=== PATIENT | female | born 1960 | race Caucasian/White ===

== ENCOUNTER 2021-10-22 07:16 | Emergency (ER) | payer SELFPAY ==
[~2021-10-22] VITALS: Ht 160 cm; Wt 54.0 kg
[2021-10-22] MEDS ORDERED: KETOROLAC TROMETHAMINE 30 MG/ML VIAL IV STA (07:27)
[2021-10-22] MEDS ORDERED: SODIUM CHLORIDE 0.9% 1000ML 1,000 ML IV STA (07:27)
[2021-10-22] MEDS ORDERED: DEXAMETHASONE SOD PHOS 10 MG/1 ML VIAL IV ONE (07:30)
[2021-10-22 07:48] LABS: BASOPHILS % 0.3 % (0.0-1.0); EOSINOPHILS # (AUTO) 0.1 (0.0-0.4); EOSINOPHILS % 0.7 % (0.0-6.0); HEMATOCRIT 33.9 % (34.2-44.1); HEMOGLOBIN 11.3 g/dL (12.0-16.0); LYMPHOCYTES # (AUTO) 0.8 (1.0-3.2); MEAN CORPUSCULAR HEMOGLOBIN 33.7 pg (28-32); MEAN CORPUSCULAR HGB CONC 33.3 g/dL (31-35); MEAN CORPUSCULAR VOLUME 101.2 fL (81-99); MONOCYTES # (AUTO) 1.1 (0.2-0.8); MONOCYTES % 12.7 % (4.4-11.3); NEUTROPHILS # (AUTO) 6.7 (2.1-6.9); NEUTROPHILS % 77.1 % (38.7-80.0); PLATELET COUNT 229 x10e3/uL (140-360); RED BLOOD COUNT 3.35 x10e6/uL (3.6-5.1); RED CELL DISTRIBUTION WIDTH 14.5 % (11.7-14.4)
[2021-10-22 08:13] LABS: ALBUMIN 3.3 g/dL (3.5-5.0); ALBUMIN/GLOBULIN RATIO 0.9 (0.8-2.0); ANION GAP 14.3 mmol/L (8-16); CALCIUM 9.3 mg/dL (8.4-10.2); CREATININE, SERUM 0.72 mg/dL (0.57-1.11); INR 0.85; MAGNESIUM 1.8 MG/DL (1.3-2.1); POTASSIUM 4.3 mmol/L (3.5-5.1); PROTHROMBIN TIME 12.4 seconds (11.9-14.5)
[2021-10-22 08:19] LABS: CREATINE KINASE MB 2.1 ng/mL (0-5.0)
[2021-10-22 08:31] LABS: B-TYPE NATRIURETIC PEPTIDE2 20.2 pg/mL (0-100)
[2021-10-22] MEDS ORDERED: ALBUTEROL/IPRATROPIUM 3 ML NEB NEB ONE (09:00)
== END 2021-10-22 09:54 | disposition home or self-care (01) ==
LOC: ER 07:30
DX: R50.9 Fever, unspecified (principal); J40 Bronchitis, not specified as acute or chronic; J44.1 Chronic obstructive pulmonary disease with (acute) exacerbation; R05.9 Cough, unspecified; Z20.822 Contact with and (suspected) exposure to COVID-19; F17.210 Nicotine dependence, cigarettes, uncomplicated
CPT/HCPCS: 36415; 71045; 80053; 82550; 82553; 83605; 83735; 83880; 84484; 85025; 85610; 85730; 87040; 93005; 94640; 94799; 99284; J1100; J1885; J7030; U0002

== ENCOUNTER → 2025-05-05 | Day surgery (SDC) | payer MEDICARE ==
[2025-04-26 15:32] LABS: BASOPHILS % 1.0 % (0.0-1.0); EOSINOPHILS % 2.0 % (0.0-6.0); LYMPHOCYTES % 27.1 % (18.0-39.1); MONOCYTES % 9.9 % (4.4-11.3); NEUTROPHILS % 59.7 % (38.7-80.0); RED CELL DISTRIBUTION WIDTH 13.1 % (11.7-14.4)
[~2025-05-05] MED LIST: ACETAMINOPHEN 1000 MG/100 ML 100 ML IV ONE; AMBIEN10 MG PO; AMOX TR-K CLV1 EAC2 PO; ASPIRIN 325 MG TAB PO SCH; CEFAZOLIN SODIUM 2 GM ONE; CELECOXIB 100 MG CAP PO SCH; CLONIDINE HCL INJ ONE; CLONIDINE HCL0.2 MG PO; CYCLOBENZAPRINE5 MG PO; DEPAKOTE ER500 MG PO; DEXAMETHASONE SOD PHOS INJ 4 MG/ML SDV ONE; DOCUSATE SODIUM 100 MG CAP PO PRN; EPINEPHRINE HCL INJ ONE; FENTANYL CITRATE/PF 100MCG/2 ML INJ ONE; HYDROCODON-ACE1 EAC9 PO; HYDROCODONE/APAP 7.5MG-325MG 1 EA TAB PO PRN; LACTATED RINGER'S 1,000 ML ONE; LEVOTHYROXINE50 MCG PO; LIDOCAINE HCL 2% LOCAL INJ 5 ML SDV VIAL INJ ONE; MIDAZOLAM HCL 2 MG/2 ML VIAL ONE; MYSOLINE50 MG PO; ONDANSETRON HCL INJ 2MG/ML 2ML 2 MG/ML VIAL IV PRN; ONDANSETRON HCL INJ 2MG/ML 2ML 2 MG/ML VIAL ONE; PROPOFOL IV EMULSION 10 MG/ML 20 ML VIAL ONE; ROPIVACAINE INJ ONE; SEVOFLURANE INHAL SOLN 250 ML PEN BTL ONE; WELLBUTRIN XL300 MG PO; [UNRECOGNIZED DRUG - OTHER] INJ ONE
[2025-05-05] MEDS: FENTANYL CITRATE/PF 100MCG/2 ML INJ ONE (09:42)
[2025-05-05] MEDS: HYDROMORPHONE 1MG/1ML INJ ONE ×2 (10:09→10:27)
[2025-05-05] MEDS: HYDROCODONE/APAP 10MG-325MG TAB ONE (11:15)
[2025-05-05 14:00] VITALS: BP 122/78; PULSE 82; RESP 16; O2SAT 97
== END | disposition home or self-care (01) ==
LOC: OR 05:34
PROVIDERS: ATTEND Orthopaedic Surgery Adult Reconstructive Orthopaedic Surgery
DX: M17.12 Unilateral primary osteoarthritis, left knee (principal); M06.9 Rheumatoid arthritis, unspecified; D64.9 Anemia, unspecified; E03.9 Hypothyroidism, unspecified; I83.90 Asymptomatic varicose veins of unspecified lower extremity; F31.9 Bipolar disorder, unspecified; Z88.8 Allergy status to other drugs, medicaments and biological substances; Z01.810 Encounter for preprocedural cardiovascular examination; Z01.812 Encounter for preprocedural laboratory examination; Z79.899 Other long term (current) drug therapy; Z87.891 Personal history of nicotine dependence
CPT/HCPCS: 27447; 36415; 73560; 85025; 86850; 86900; 93005; 97116; 97162; 97530 ×2; C1713 ×2; C1776 ×4; J0131; J0169; J1100; J1171; J2003; J2250; J2405; J2704; J2795; J3010; J7121

== ENCOUNTER 2025-05-08 19:13 | Emergency (ER) | payer MEDICARE ==
[~2025-05-08] VITALS: Ht 157.5 cm; Wt 68.5 kg
[~2025-05-08 19:13] MED LIST changes: -ACETAMINOPHEN 1000 MG/100 ML 100 ML IV ONE; -AMOX TR-K CLV1 EAC2 PO; -ASPIRIN 325 MG TAB PO SCH; -CEFAZOLIN SODIUM 2 GM ONE; -CELECOXIB 100 MG CAP PO SCH; -CLONIDINE HCL INJ ONE; -DEXAMETHASONE SOD PHOS INJ 4 MG/ML SDV ONE; -DOCUSATE SODIUM 100 MG CAP PO PRN; -EPINEPHRINE HCL INJ ONE; -FENTANYL CITRATE/PF 100MCG/2 ML INJ ONE; -HYDROCODONE/APAP 7.5MG-325MG 1 EA TAB PO PRN; -LACTATED RINGER'S 1,000 ML ONE; -LIDOCAINE HCL 2% LOCAL INJ 5 ML SDV VIAL INJ ONE; -MIDAZOLAM HCL 2 MG/2 ML VIAL ONE; -ONDANSETRON HCL INJ 2MG/ML 2ML 2 MG/ML VIAL IV PRN; -ONDANSETRON HCL INJ 2MG/ML 2ML 2 MG/ML VIAL ONE; -PROPOFOL IV EMULSION 10 MG/ML 20 ML VIAL ONE; -ROPIVACAINE INJ ONE; -SEVOFLURANE INHAL SOLN 250 ML PEN BTL ONE; -[UNRECOGNIZED DRUG - OTHER] INJ ONE
[2025-05-08 19:20] VITALS: PULSE 109; RESP 20; TEMP 99
[2025-05-08 20:25] LABS: BASOPHILS % 0.6 % (0.0-1.0); EOSINOPHILS % 1.7 % (0.0-6.0); LYMPHOCYTES % 14.0 % (18.0-39.1); MONOCYTES % 11.3 % (4.4-11.3); NEUTROPHILS % 72.1 % (38.7-80.0); RED CELL DISTRIBUTION WIDTH 14.0 % (11.7-14.4)
[2025-05-08 20:49] LABS: EST GLOMERULAR FILTRATION RATE 80.0 ML/MIN (>=60)
[2025-05-08] MEDS ORDERED: AMOX TR-K CLV1 EAC2 PO (21:41)
[2025-05-08 21:48] VITALS: BP 119/68; PULSE 74; RESP 18; TEMP 98.6; O2SAT 98
[2025-05-08] MEDS: Morphine 4mg INJECTION 4 MG/ML INJ IV STA (22:03)
[2025-05-08] MEDS: ONDANSETRON HCL INJ 2MG/ML 2ML 2 MG/ML VIAL IV STA (22:03)
[2025-05-08] MEDS: DEXAMETHASONE SOD PHOS 10 MG/1 ML VIAL IV STA (22:03)
== END 2025-05-08 22:04 | disposition home or self-care (01) ==
LOC: ER 19:28
DX: G89.18 Other acute postprocedural pain (principal); Z96.652 Presence of left artificial knee joint; E03.9 Hypothyroidism, unspecified; F41.9 Anxiety disorder, unspecified; F32.A Depression, unspecified; R25.1 Tremor, unspecified; M19.09 Primary osteoarthritis, other specified site
CPT/HCPCS: 36415; 73562; 80053; 85025; 99284; J1100; J2270; J2405